=== PATIENT | male | born 1960 | race Caucasian/White ===

== ENCOUNTER 2024-06-13 18:40 | Emergency (ER) | payer BC ==
[~2024-06-13] VITALS: Ht 180.3 cm; Wt 88.5 kg
[2024-06-13] MEDS ORDERED: SERT100T PO (18:54)
[2024-06-13] MEDS ORDERED: LIPITOR (18:54)
[2024-06-13 19:03] VITALS: BP 155/83; O2SAT 99
== END 2024-06-13 19:14 | disposition left against medical advice (07) ==
LOC: ER 18:41
DX: K22.89 Other specified disease of esophagus (principal); R03.0 Elevated blood-pressure reading, without diagnosis of hypertension; F32.A Depression, unspecified; Z79.899 Other long term (current) drug therapy
CPT/HCPCS: A4606; A4663